=== PATIENT | male | born 1965 | race Caucasian/White ===

== ENCOUNTER 2018-02-15 07:35 | Emergency (ER) | payer SELFPAY ==
[~2018-02-15] VITALS: Ht 165.1 cm; Wt 63.8 kg
[2018-02-15] MEDS ORDERED: HYDROcodone/APAP 5/325MG 1 TAB TABLET PO ONE (07:45)
[2018-02-15] MEDS ORDERED: HYDR-971 PO (08:00)
[2018-02-15] MEDS ORDERED: METH4TAB2 PO (08:00)
[2018-02-15] MEDS ORDERED: IBUP800T19 PO (08:00)
--- NOTE | 2018-02-15 08:00 | PHYS DOC ---
Past History Past Medical History: Other Past Surgical History: Other Smoking: Cigarettes Alcohol Use: Heavy Drug Use: None Adult General Chief Complaint Chief Complaint: KNEE INJURY HPI HPI Patient is a 52-year-old homeless male patient who presents with complaining of right knee pain and injury. Patient stated he had history of ACL surgery and right knee and 2 days ago stepped into a hole and twisted his knee and since then has had pain and swelling of his knee with painful walking. Patient walked to the emergency room and states he didn't have a ride to come to ER. Patient rated his pain 10 over 10 and denies focal neuro deficit. Review of Systems Review of Systems Constitutional: Denies fever or chills [] Eyes: Denies change in visual acuity, redness, or eye pain [] HENT: Denies nasal congestion or sore throat [] Respiratory: Denies cough or shortness of breath [] Cardiovascular: No additional information not addressed in HPI [] GI: Denies abdominal pain, nausea, vomiting, bloody stools or diarrhea [] : Denies dysuria or hematuria [] Musculoskeletal: Denies back pain, reports joint pain [] Integument: Denies rash or skin lesions [] Neurologic: Denies headache, focal weakness or sensory changes [] Endocrine: Denies polyuria or polydipsia [] All other systems were reviewed and found to be within normal limits, except as documented in this note. Current Medications Current Medications Current Medications Medications (Trade) Dose Ordered Sig/[place] Start Time Stop Time Status Last Admin Dose Admin Acetaminophen/ Hydrocodone Bitart (Lortab 5/325) 1 tab 1X ONCE 02/15/18 07:45 02/15/18 07:46 UNV Allergies Allergies Allergies Coded Allergies Type Severity Reaction Last Updated Verified No Known Allergies Allergy Unknown 02/15/18 No Physical Exam Physical Exam Constitutional: Well nourished, mild distress, non-toxic appearance. [] HENT: Normocephalic, atraumatic Eyes: PERRLA, EOMI, conjunctiva normal, no discharge. [] Neck: Normal range of motion, no tenderness, supple, no stridor. [] Cardiovascular:Heart rate regular rhythm, no murmur [] Lungs & Thorax: Bilateral breath sounds clear to auscultation [] Extremities: Right knee with moderate to severe edema in proximal left knee with limited range of motion secondary to the pain without deformity or neurovascular deficit, no cyanosis, no clubbing, no edema. [] Neurologic: Alert and oriented X 3, normal motor function, normal sensory function, no focal deficits noted. [] Psychologic: Affect anxious, judgement normal, mood normal. [] EKG EKG [] Radiology/Procedures Radiology/Procedures [][address] [address] IMAGING REPORT Signed PATIENT: GABO OCAMPO ACCOUNT: [id number] : 1965 LOCATION: ER AGE: 52 SEX: M EXAM STATUS: REG ER ORD. PHYSICIAN: THALIA WILLINGHAM MD REASON: pain and edema PROCEDURE: KNEE RIGHT 4V 3 views of the right knee 02/15/2018 7:57 AM Indication: Injury to knee recently, unable to bear weight on leg. Pt has had past surgery to ACL, hardware present Comparison: None available Findings: Moderate joint effusion is present. No evidence of acute fracture is identified. Post surgical changes following ACL repair noted. Medial compartment narrowing and mild medial and lateral compartment osteophytosis seen. Patellofemoral osteophytosis is seen. Impression: 1.Moderate joint effusion without radiographic evidence of acute osseous abnormality. 2. Postsurgical changes following ACL repair Electronically signed by: Luc Eckert MD (02/15/2018 8:24 AM) [id number] DICTATED AND SIGNED BY: LUC ECKERT MD DATE: 02/15/18 0821 CC: THALIA WILLINGHAM MD; PCP,NO ~ Course & Med Decision Making Course & Med Decision Making Pertinent Imaging studies reviewed. (See chart for details) Evaluation of patient in ER showed 52-year-old male patient with history of right ACL surgery and injury to right knee 2 days ago walked to ER with complaining of pain. Patient had moderate to severe edema and limited range of motion of the right leg with unremarkable x-ray of knee. Right knee immobilizer was applied and crutches was provided and patient instructed to follow up with on-call physician physician for possible ACL tear again. Dragon Disclaimer Dragon Disclaimer This electronic medical record was generated, in whole or in part, using a voice recognition dictation system. Departure Departure: Impression: Primary Impression: Effusion of knee joint right Additional Impressions: ACL sprain Tobacco abuse Tobacco abuse counseling Homeless Disposition: 01 HOME, SELF-CARE Condition: STABLE Referrals: PCP,NO (PCP) Patient Instructions: Knee Effusion, Knee Sprain, Smoking Cessation, Tips For Success Additional Instructions: Avoid of walking without crutches Apply ice and right knee Follow-up with your orthopedic physician livestock commission agent orthopedic physician Dr. Lynch at [phone] in one or 2 days Return to ER if not getting better Scripts Hydrocodone Bit/Acetaminophen (NORCO 5-325 TABLET) 1 Each Tablet 1 TAB PO PRN Q6HRS PRN for PAIN, #14 TAB 0 Refills Prov: THALIA WILLINGHAM MD 02/15/18 Methylprednisolone (MEDROL) 4 Mg Tab.ds.pk 1 PKG PO UD, #1 PKG Prov: THAILA WILLINGHAM MD 02/15/18 Ibuprofen (IBUPROFEN) 800 Mg Tablet 1 TAB PO TID, #30 TAB Prov: THALIA WILLINGHAM MD 02/15/18 Problem Qualifiers THALIA WILLINGHAM MD Feb 15, 2018 08:00
[2018-02-15 08:19] VITALS: BP 150/87
--- NOTE | 2018-02-15 08:28 | RAD ---
3 views of the right knee 02/15/2018 7:57 AM Indication: Injury to knee recently, unable to bear weight on leg. Pt has had past surgery to ACL, hardware present Comparison: None available Findings: Moderate joint effusion is present. No evidence of acute fracture is identified. Post surgical changes following ACL repair noted. Medial compartment narrowing and mild medial and lateral compartment osteophytosis seen. Patellofemoral osteophytosis is seen. Impression: 1.Moderate joint effusion without radiographic evidence of acute osseous abnormality. 2. Postsurgical changes following ACL repair Electronically signed by: Luc Arteaga MD (02/15/2018 8:24 AM) [id number]
== END 2018-02-15 08:19 | disposition home or self-care (01) ==
LOC: ER 07:35
DX: S43.51XA Sprain of right acromioclavicular joint, initial encounter (principal); M25.461 Effusion, right knee; F17.210 Nicotine dependence, cigarettes, uncomplicated; F10.20 Alcohol dependence, uncomplicated; Z59.0 Homelessness; Z71.6 Tobacco abuse counseling; Y90.9 Presence of alcohol in blood, level not specified; W18.42XA Slipping, tripping and stumbling without falling due to stepping into hole or opening, initial encounter; Y93.89 Activity, other specified; Y92.89 Other specified places as the place of occurrence of the external cause; Y99.8 Other external cause status
CPT/HCPCS: 29505; 73564; 99284